=== PATIENT | male | born 1945 | race Caucasian/White ===

== ENCOUNTER 2016-07-14 16:36 | Observation (INO) | payer MEDICARE, OTHER ==
--- NOTE | ~2016-07-14 | HP ---
History And Physical [address] [address] [place]. [address] NAME: REINA CANALES : 43 STATUS : ADM [facility] PAT#: [id number] AGE: 71 ADM/REG DATE : 07/14/16 MR#: [id number] REPORT SERV DATE: 07/15/16 DICTATED BY: NIKKI SHELL DATE: 07/15/16 REPORT STATUS : Draft TRANSCRIBED BY: MODL DATE: 07/15/16 DATE OF ADMISSION: 07/14/2016 HISTORY OF PRESENT ILLNESS: The patient is a 71-year-old white male with a history of coronary artery disease and prior stenting. He presented to the emergency department last night after experiencing some sharp substernal chest pain yesterday that lasted about 20 minutes. He denies any recurrent chest pains since and is currently anxious to go home. He actually states that he really does not want any further workup at this time and would like to go home this morning. I advised him against that due to his cardiac history as well as his borderline troponin level. PAST MEDICAL HISTORY: Includes coronary artery disease, chronic systolic heart failure with an ejection fraction of 40%, essential hypertension, hyperlipidemia, diabetes mellitus, and COPD, as well as osteoarthritis. The patient's last cardiac catheterization was done here at [facility] two months ago on 05/09/2016 and this showed patent pre-existing stents in the mid LAD, first diagonal, proximal left circumflex, and proximal RCA. There was a 30% proximal LAD lesion at that time, but no other significant disease. The patient's left ventricular ejection fraction was 40%. SOCIAL HISTORY: The patient continues to smoke about half a pack of cigarettes daily. FAMILY HISTORY: Positive for coronary artery disease in both parents and diabetes in his mother. REVIEW OF SYSTEMS: The patient denies nausea, vomiting, diarrhea, or dysuria. He states that his has been sick recently, but he himself has not felt ill. He denies any significant dyspnea on exertion and denies any significant cough, wheeze, or sputum production. He reports that the sharp chest pain he experienced yesterday felt nothing like his prior angina. There were no associated symptoms of shortness of breath, nausea, diaphoresis, or lightheadedness. PHYSICAL EXAMINATION: VITAL SIGNS: Blood pressure is 196/81, heart rate 73 and regular, respirations 16 and unlabored. The patient is afebrile. GENERAL APPEARANCE: The patient is a well-developed, well-nourished white male, in no acute distress. HEENT: Unremarkable. NECK: Shows no jugular venous distention with good carotid upstroke. CHEST: Clear to auscultation bilaterally. CARDIOVASCULAR: PMI is lateral to the midclavicular line. S1 is normal. S2 is narrowly split. No gallop is present. ABDOMEN: Soft and nontender with normal bowel sounds. EXTREMITIES: No cyanosis, clubbing, or edema. SKIN: Warm and dry with no pallor or icterus. NEURO/PSYCH: The patient is alert and oriented x3 with appropriate affect. History And Physical [address] [address] NAME: REINA CANALES : 43 STATUS : ADM [facility] PAT#: [id number] AGE: 71 ADM/REG DATE : 07/14/16 MR#: [id number] REPORT SERV DATE: 07/15/16 DICTATED BY: NIKKI SHELL DATE: 07/15/16 REPORT STATUS : Draft TRANSCRIBED BY: BELLA DATE: 07/15/16 LABORATORY AND DIAGNOSTIC DATA: EKG shows sinus rhythm with nonspecific ST-T changes. Chemistry panel shows a sodium of 146, potassium 3.8, BUN 16, creatinine 1.17. The patient's troponin was borderline elevated at 0.12, but the redraw had trended downward to 0.10. CBC showed a white count of 6.7, hemoglobin 10.3, hematocrit 30.3, and platelets 244. Chest x-ray showed no acute cardiopulmonary abnormality. IMPRESSION: 1. Atypical chest pain in a patient with known coronary artery disease. 2. Nondiagnostic troponin. 3. Coronary artery disease with recent cardiac catheterization showing patent stents and no obstructive disease. 4. Hypertension. 5. Chronic obstructive pulmonary disease with continued tobacco abuse. 6. Hyperlipidemia. PLAN: I have advised the patient against leaving without further workup. Given the fact that his troponin is not rising and he had a recent normal cardiac catheterization with current atypical symptoms, we will proceed with nuclear stress testing this morning. BRENDON/BELLA Nikki Shell NP / [id number] CC: Jose Elias Dove M.D., [facility]
[~2016-07-14 16:36] MED LIST: ADVAIR250 INH; ALAVERT10 MG PO; ALLEGRA PO; ALLEGRA180 PO; ALTA5 PO; ALTACE10 MG PO; ASAB PO; ATV1 PO; BENTYL10 PO; BENTYL20 PO; CELEXA20 PO; CELEXA40 MG PO; COREG12 PO; COREG25 PO; CYANO1000T PO; DUONEB INH; EFFIENT10 PO; ERY-TAB250 MG PO; ERYTHROCIN250 MG PO; FLONASE NAS; FORTAMET500 MG PO; GLUCOPHXR7 PO; GLUCXL10 PO; HALF81 PO; HUMALOG SC; HYDROMET1 ML PO; KLONO5 PO; KLOR-CON 1010 MEQ PO; L20 PO; LANTUS SC; LIPITOR20 PO; LORTAB10 PO; MEVACOR PO; MEVACOR10 MG PO; MICRO-K10 MEQ PO; NEUPRO1 EACH TOP; NEUR300 PO; NEUR600 PO; NORCO1 TAB PO; NORV5 PO; NOVOLOG SC; PLAVIX PO; PRILO PO; PRILOSEC40 MG PO; PROAIR HFA INH; PROTONIX PO; PROVENTSOL INH; REQUIP4 MG PO; REST15 PO; SOMATAB PO; SPECTAZOLE TOP; SUCR PO; TRAZ100 PO; TRAZ50 PO; VASOTEC20 MG PO; VENTOLIN HFA INH; VITAMIN D31000 UNIT PO; VITC500 PO; XANAX1 MG PO; ZANAFLEX 4 MG TA4 MG PO; [UNRECOGNIZED DRUG - SUPPLY] INH
[2016-07-14 17:19] LABS: BASOPHILS 0.1 %; BASOPHILS ABSOLUTE 0.01 10/3/uL (0.0-0.16); EOSINOPHILS 2.3 %; EOSINOPHILS ABSOLUTE 0.22 10/3/uL (0.0-0.53); HEMOGLOBIN 10.9 g/dL (13.6-17.8); IMMATURE GRANULOCYTES 0.3 %; IMMATURE GRANULOCYTES ABSOLUTE 0.03 10/3/uL (0.0-0.11); LYMPHOCYTES 20.2 %; LYMPHOCYTES ABSOLUTE 1.95 10/3/uL (0.67-4.30); MEAN CORPUSCULAR HEMOGLOB 29.3 pg (26.0-34.0); MEAN CORPUSCULAR VOLUME 91.7 fL (80-100); MEAN PLATELET VOLUME 9.9 fL (9.2-13.0); MONOCYTES 8.5 %; MONOCYTES ABSOLUTE 0.82 10/3/uL (0.21-1.20); NEUTROPHILS 68.6 %; NEUTROPHILS ABSOLUTE 6.62 10/3/uL (2.02-8.40); RBC DISTRIBUTION WIDTH 13.5 % (12.0-16.0); RED CELL COUNT 3.72 10/6/uL (4.7-6.1); WHITE BLOOD CELLS 9.7 10/3/uL (4.5-10.5)
[2016-07-14 17:20] LABS: HEMATOCRIT 34.1 % (40.0-51.0); MANUAL DIFF NO %; PLATELET COUNT 358 10/3/uL (150-400)
[2016-07-14 17:37] LABS: A/G RATIO 0.6 (0.7-1.9); ALKALINE PHOSPHATASE 57 U/L (45-117); BUN (BLOOD UREA NITROGEN) 16 MG/DL (6-23); CALCIUM, SERUM 8.4 MG/DL (8.5-10.4); CHLORIDE, SERUM 108 MMOL/L (96-112); CO2 (CARBON DIOXIDE) 27 MMOL/L (24-34); CREATININE 1.17 MG/DL (0.70-1.30); GFR AFRICAN AMERICAN 72 ML/MIN (>=60); GFR NON AFRICAN AMERICAN 62 ML/MIN (>=60); GLOBULIN 4.7 G/DL (2.5-4.1); GLUCOSE, SERUM 64 MG/DL (60-99); POTASSIUM, SERUM 3.8 MMOL/L (3.5-5.3); SGOT(AST) 18 U/L (5-40); SGPT(ALT) 20 U/L (5-65); SODIUM, SERUM 146 MMOL/L (135-148); TOTAL BILIRUBIN 0.4 MG/DL (0-1.2); TOTAL PROTEIN 7.7 G/DL (6.0-8.5); TROPONIN I 0.12 NG/ML (<0.05)
[2016-07-15 01:44] LABS: BASOPHILS 0.1 %; BASOPHILS ABSOLUTE 0.01 10/3/uL (0.0-0.16); EOSINOPHILS 2.7 %; EOSINOPHILS ABSOLUTE 0.18 10/3/uL (0.0-0.53); HEMATOCRIT 30.3 % (40.0-51.0); HEMOGLOBIN 10.3 g/dL (13.6-17.8); IMMATURE GRANULOCYTES 0.3 %; IMMATURE GRANULOCYTES ABSOLUTE 0.02 10/3/uL (0.0-0.11); LYMPHOCYTES 28.5 %; LYMPHOCYTES ABSOLUTE 1.92 10/3/uL (0.67-4.30); MANUAL DIFF NO %; MEAN CORPUSCULAR VOLUME 91.3 fL (80-100); MEAN PLATELET VOLUME 10.1 fL (9.2-13.0); MONOCYTES 13.8 %; MONOCYTES ABSOLUTE 0.93 10/3/uL (0.21-1.20); NEUTROPHILS 54.6 %; NEUTROPHILS ABSOLUTE 3.67 10/3/uL (2.02-8.40); PLATELET COUNT 244 10/3/uL (150-400); RBC DISTRIBUTION WIDTH 13.4 % (12.0-16.0); RED CELL COUNT 3.32 10/6/uL (4.7-6.1); WHITE BLOOD CELLS 6.7 10/3/uL (4.5-10.5)
[2016-07-15 02:02] LABS: CHOL/HDL RATIO(NOT ORDER) 2.4 (0-5)
[2017-01-13] MEDS ORDERED: ERY-TAB250 MG PO (13:14)
[2017-01-13] MEDS ORDERED: NEUPRO1 EACH TOP (13:17)
[2017-01-13] MEDS ORDERED: PR25 PO (13:17)
[2017-01-17] MEDS ORDERED: ALKA-SELTZER O1 EACH PO (10:34)
[2017-01-19] MEDS ORDERED: DUONEB INH (14:05)
== END 2016-07-15 17:00 | disposition home or self-care (01) ==
LOC: ER 16:36 → CDU1 21:00
PROVIDERS: Emergency Medicine
DX: R07.89 Other chest pain (principal); I25.10 Atherosclerotic heart disease of native coronary artery without angina pectoris; I50.22 Chronic systolic (congestive) heart failure; I11.0 Hypertensive heart disease with heart failure; E78.5 Hyperlipidemia, unspecified; E11.9 Type 2 diabetes mellitus without complications; J44.9 Chronic obstructive pulmonary disease, unspecified; M19.90 Unspecified osteoarthritis, unspecified site; F17.210 Nicotine dependence, cigarettes, uncomplicated
CPT/HCPCS: 71010; 78452; 80053; 80061; 82962; 84132; 84460; 84484; 85025; 85730; 93005; 93017; 96360; 96372; 99285; A9270-GY; A9502; G0378; J0153

== ENCOUNTER 2016-10-05 15:47 | Emergency (ER) | payer MEDICARE, OTHER ==
[2016-10-05 18:13] LABS: BASOPHILS 0.2 %; BASOPHILS ABSOLUTE 0.02 10/3/uL (0.0-0.16); EOSINOPHILS 1.9 %; EOSINOPHILS ABSOLUTE 0.17 10/3/uL (0.0-0.53); IMMATURE GRANULOCYTES 0.1 %; IMMATURE GRANULOCYTES ABSOLUTE 0.01 10/3/uL (0.0-0.11); LYMPHOCYTES 29.2 %; LYMPHOCYTES ABSOLUTE 2.58 10/3/uL (0.67-4.30); MEAN CORPUS HGB CONC 32.3 g/dL (32.0-36.0); MEAN CORPUSCULAR HEMOGLOB 28.4 pg (26.0-34.0); MEAN PLATELET VOLUME 10.5 fL (9.2-13.0); MONOCYTES 10.6 %; MONOCYTES ABSOLUTE 0.94 10/3/uL (0.21-1.20); NEUTROPHILS ABSOLUTE 5.12 10/3/uL (2.02-8.40); PLATELET COUNT 180 10/3/uL (150-400); RBC DISTRIBUTION WIDTH 14.4 % (12.0-16.0); WHITE BLOOD CELLS 8.8 10/3/uL (4.5-10.5)
[2016-10-05 18:20] LABS: HEMATOCRIT 40.6 % (40.0-51.0); HEMOGLOBIN 13.1 g/dL (13.6-17.8); MANUAL DIFF NO %; MEAN CORPUSCULAR VOLUME 87.9 fL (80-100); RED CELL COUNT 4.62 10/6/uL (4.7-6.1)
[2016-10-05 18:23] LABS: PARTIAL THROMBO TIME 26.3 SEC (22.5-37.2); PROTIME (NOT ORD) 13.3 SEC (12.0-14.5)
[2016-10-05 18:29] LABS: CHLORIDE, SERUM 111 MMOL/L (96-112); CO2 (CARBON DIOXIDE) 27 MMOL/L (24-34); CREATININE 1.19 MG/DL (0.70-1.30); GFR AFRICAN AMERICAN 70 ML/MIN (>=60); GFR NON AFRICAN AMERICAN 61 ML/MIN (>=60); POTASSIUM, SERUM 4.1 MMOL/L (3.5-5.3); SODIUM, SERUM 143 MMOL/L (135-148)
[2016-10-05 18:30] LABS: BUN (BLOOD UREA NITROGEN) 23 MG/DL (6-23); CHEST PAIN PROFILE TAT 0 Hrs 23 Mins; GLUCOSE, SERUM 122 MG/DL (60-99)
[2017-01-13] MEDS ORDERED: ERY-TAB250 MG PO (13:14)
[2017-01-13] MEDS ORDERED: NEUPRO1 EACH TOP (13:17)
[2017-01-13] MEDS ORDERED: PR25 PO (13:17)
[2017-01-17] MEDS ORDERED: ALKA-SELTZER O1 EACH PO (10:34)
[2017-01-19] MEDS ORDERED: DUONEB INH (14:05)
== END 2016-10-05 21:37 | disposition home or self-care (01) ==
LOC: ER 15:47
PROVIDERS: Emergency Medicine
DX: S46.911A Strain of unspecified muscle, fascia and tendon at shoulder and upper arm level, right arm, initial encounter (principal); R79.89 Other specified abnormal findings of blood chemistry; F17.200 Nicotine dependence, unspecified, uncomplicated; J44.9 Chronic obstructive pulmonary disease, unspecified; Z95.5 Presence of coronary angioplasty implant and graft; E11.9 Type 2 diabetes mellitus without complications; G20 Parkinson's disease; E78.5 Hyperlipidemia, unspecified; I10 Essential (primary) hypertension; Z88.5 Allergy status to narcotic agent; Z88.1 Allergy status to other antibiotic agents; Z79.899 Other long term (current) drug therapy; Z79.82 Long term (current) use of aspirin; Z79.4 Long term (current) use of insulin; X58.XXXA Exposure to other specified factors, initial encounter
CPT/HCPCS: 71020; 80048; 82962; 83735; 84484; 85025; 85610; 85730; 93005; 96372; 99284; A9270-GY